=== PATIENT | female | born 1960 | race Caucasian/White ===

== ENCOUNTER 2017-03-21 12:18 | Outpatient (CLI) | payer OTHER ==
--- NOTE | 2017-03-21 17:00 | XRAY Report ---
LUMBAR SPINE THREE VIEWS: 03/21/2017 CLINICAL HISTORY: Back pain. COMPARISON: None. FINDINGS: The patient is status post posterior instrumented and anterior interbody L4-5 fusions. There is degenerative L3-4 disk space narrowing. Minimal dextroscoliosis apex at L3. No other significant findings. IMPRESSION: STATUS POST ANTERIOR AND POSTERIOR L4-5 FUSIONS WITH MODERATELY ADVANCED DEGENERATIVE DISK DISEASE AT L3-4. OTHERWISE, NEGATIVE. JOB #: [id number] EXT JOB #: [id number] [facility]
== END 2017-03-21 12:19 | disposition home or self-care (01) ==
LOC: DI 12:18
PROVIDERS: ATTEND Internal Medicine
DX: M51.36 Other intervertebral disc degeneration, lumbar region (principal); Z98.1 Arthrodesis status
CPT/HCPCS: 72100

== ENCOUNTER 2017-09-06 10:58 | Outpatient (CLI) | payer OTHER ==
--- NOTE | 2017-09-06 14:58 | XRAY Report ---
FOUR VIEW RIGHT WRIST: 09/06/2017 CLINICAL INDICATION: Pain at base of thumb. FINDINGS: AP, lateral, oblique, scaphoid views of the right wrist demonstrate no evidence of fracture or dislocation. The joint spaces are preserved. No radiopaque foreign body is seen in the soft tissues. IMPRESSION: NORMAL RIGHT WRIST. TD: 09/06/2017 14:57
== END 2017-09-06 10:59 | disposition home or self-care (01) ==
LOC: DI 10:58
PROVIDERS: ATTEND Internal Medicine
DX: M79.644 Pain in right finger(s) (principal); M25.541 Pain in joints of right hand

== ENCOUNTER 2017-09-24 09:44 | Outpatient (CLI) | payer OTHER ==
--- NOTE | 2017-09-25 17:18 | Mammography Report ---
DIGITAL SCREENING MAMMOGRAM: 09/24/2017 CLINICAL INDICATION: A 56-year-old with history of late childbearing for screening. COMPARISON: Films from [place], [place] dated 02/20/2013, 12/14/2011. TECHNIQUE: Routine CC and MLO projections were obtained of the breasts. FINDINGS: Scattered fibroglandular tissue is present within the breasts. There are no dominant masses, suspicious microcalcifications, or secondary signs of malignancy. In comparison to the previous studies, there are no significant changes. ASSESSMENT: NO MAMMOGRAPHIC EVIDENCE OF MALIGNANCY. NO SIGNIFICANT INTERVAL CHANGES. RECOMMENDATION: Screening mammography is recommended annually. BIRADS category 1 - negative. STANDARD QUALIFYING STATEMENTS: 1. This examination was reviewed with the aid of Computed-Aided Detection (CAD). 2. A negative or benign imaging report should not delay biopsy if clinically suspicious findings are present. Consider surgical consultation if warranted. More than 5% of cancers are not identified by imaging. 3. Dense breasts may obscure an underlying neoplasm. TD: 09/25/2017 17:16
== END 2017-09-24 09:45 | disposition home or self-care (01) ==
LOC: DI 09:44
PROVIDERS: ATTEND Internal Medicine
DX: Z12.31 Encounter for screening mammogram for malignant neoplasm of breast (principal)
CPT/HCPCS: 77067

== ENCOUNTER 2018-04-02 11:22 | Outpatient (CLI) | payer OTHER ==
--- NOTE | 2018-04-02 16:31 | XRAY Report ---
Reason: NIGHTSWEATS Procedure Date: 04/02/2018 Accession Number: [id number] / [id number] Procedure: XR - Chest 2 View X-Ray CPT Code: 55850 FULL RESULT: EXAM: CHEST RADIOGRAPHY EXAM DATE: 04/02/2018 11:57 AM. CLINICAL HISTORY: Night sweats. COMPARISON: None. TECHNIQUE: 2 views. FINDINGS: Lungs/Pleura: No focal opacities evident. No pleural effusion. No pneumothorax. Normal volumes. Mediastinum: Heart and mediastinal contours are unremarkable. Other: None. IMPRESSION: No acute cardiopulmonary abnormality and no evidence of prior granulomatous disease. [facility]
== END 2018-04-02 11:23 | disposition home or self-care (01) ==
LOC: DI 11:22
PROVIDERS: ATTEND Internal Medicine
DX: R61 Generalized hyperhidrosis (principal)
CPT/HCPCS: 71046

== ENCOUNTER 2018-08-21 12:47 | Outpatient (CLI) | payer OTHER ==
--- NOTE | 2018-08-21 14:22 | XRAY Report ---
Reason: L SMALL FINGER PAIN DEFORMITY Procedure Date: 08/21/2018 Accession Number: [id number] / [id number] Procedure: XR - Hand 3 View LT CPT Code: FULL RESULT: EXAM: LEFT HAND RADIOGRAPHY EXAM DATE: 08/21/2018 12:57 PM. CLINICAL HISTORY: Left small finger pain and deformity. COMPARISON: Right wrist 4 views 09/06/2017. TECHNIQUE: 3 views. FINDINGS: Bones: There is a questionable small donor fragment along the dorsal aspect of the fifth distal interphalangeal articulation, well corticated and possibly not acute. Joints: Normal. No subluxations. Soft Tissues: Normal. No soft tissue swelling. IMPRESSION: Question avulsion fracture at the distal fifth interphalangeal articulation dorsally. RADIA
== END 2018-08-21 12:48 | disposition home or self-care (01) ==
LOC: DI 12:47
PROVIDERS: ATTEND Internal Medicine
DX: M79.645 Pain in left finger(s) (principal); M20.099 Other deformity of finger(s), unspecified finger(s)

== ENCOUNTER 2018-10-24 08:58 | Outpatient (CLI) | payer OTHER ==
[2018-10-24 09:13] LABS: BASOPHILS # (AUTO) 0.1 10^3/uL (0.0-0.1); BASOPHILS % (AUTO) 2.2 %; EOSINOPHILS # (AUTO) 0.2 10^3/uL (0.0-0.7); EOSINOPHILS % (AUTO) 4.8 %; HGB - HEMOGLOBIN 12.6 g/dL (12.0-16.0); LYMPHOCYTES # (AUTO) 1.1 10^3/uL (1.5-3.5); LYMPHOCYTES % (AUTO) 27.1 %; MEAN CORPUSCULAR HEMOGLOBIN 31.6 pg (27.0-31.0); MEAN CORPUSCULAR HGB CONC 33.3 g/dL (32.0-36.0); MEAN CORPUSCULAR VOLUME 94.8 fL (81.0-99.0); MEAN PLATELET VOLUME 9.6 fL (7.9-10.8); MONOCYTES # (AUTO) 0.4 10^3/uL (0.0-1.0); MONOCYTES % (AUTO) 9.6 %; NEUTROPHILS # (AUTO) 2.3 10^3/uL (1.5-6.6); NEUTROPHILS % (AUTO) 56.3 %; PLT - PLATELET COUNT 179 10^3/uL (130-450); RED BLOOD COUNT 4.01 10^6/uL (4.20-5.40); RED CELL DISTRIBUTION WIDTH 13.9 % (12.0-15.0); WHITE BLOOD COUNT 4.2 x10^3/uL (4.8-10.8)
[2018-10-24 09:26] LABS: BILIRUBIN,URINE NEGATIVE (NEGATIVE); GLUCOSE, URINE (UA) NEGATIVE (NEGATIVE); KETONES,URINE (UA) NEGATIVE (NEGATIVE); LEUKOCYTE ESTERASE, URINE NEGATIVE (NEGATIVE); NITRITE,URINE NEGATIVE (NEGATIVE); OCCULT BLOOD,URINE NEGATIVE (NEGATIVE); PROTEIN,URINE NEGATIVE (NEGATIVE); UROBILINOGEN,URINE 0.2 (NORMAL) E.U./dL (NORMAL)
[2018-10-24 09:32] LABS: ALBUMIN 3.8 g/dL (3.2-5.5); ALBUMIN/GLOBULIN RATIO 1.5 (1.0-2.2); ALKALINE PHOSPHATASE 59 IU/L (42-121); ALT ALANINE AMINOTRANSFERASE 14 IU/L (10-60); AST ASPARTATE AMINOTRANSFERASE 18 IU/L (10-42); BILIRUBIN,TOTAL 0.6 mg/dL (0.2-1.0); BUN - BLOOD UREA NITROGEN 20 mg/dL (6-20); CALCIUM 8.7 mg/dL (8.5-10.3); CARBON DIOXIDE - CO2 28 mmol/L (21-32); CHLORIDE 98 mmol/L (101-111); CHOL/HDL RATIO 2.1 (<4.4); CHOLESTEROL 185 mg/dL; CK- CREATINE KINASE 59 IU/L (22-269); GFR - MDRD 57 (>89); GLUCOSE 93 mg/dL (70-100); HDL CHOLESTEROL 88 mg/dL; SODIUM 135 mmol/L (135-145); TOTAL PROTEIN 6.4 g/dL (6.7-8.2)
[2018-10-24 09:35] LABS: CLARITY,URINE CLEAR (CLEAR)
[2018-10-24 09:42] LABS: THYROID STIMULATING HORMONE 2.83 uIU/mL (0.34-5.60)
[2018-10-24 09:54] LABS: LDL CHOLESTEROL,DIRECT 87 mg/dL
[2018-10-25 12:47] LABS: HEPATITIS C ANTIBODY NON-REACTIVE (NON-REACTIVE)
== END 2018-10-24 08:59 | disposition home or self-care (01) ==
LOC: LAB 08:58
PROVIDERS: ATTEND Internal Medicine
DX: I10 Essential (primary) hypertension (principal); E78.5 Hyperlipidemia, unspecified; Z79.899 Other long term (current) drug therapy; K58.9 Irritable bowel syndrome, unspecified; R53.83 Other fatigue; F32.9 Major depressive disorder, single episode, unspecified; J45.909 Unspecified asthma, uncomplicated; Z11.59 Encounter for screening for other viral diseases
CPT/HCPCS: 36415; 80053; 80061; 81001; 81003; 82550; 82607; 83721; 84443; 85025; 86803; 87086

== ENCOUNTER 2018-11-26 15:37 | Outpatient (CLI) | payer OTHER ==
--- NOTE | 2018-11-27 10:47 | Mammography Report ---
Reason: SCREENING MAMMO Procedure Date: 11/26/2018 Accession Number: [id number] / [id number] Procedure: [facility] - Screening Mammo w/Silvestre CPT Code: FULL RESULT: EXAM: Screening Mammo w/Silvestre DATE: 11/26/2018 4:20 PM CLINICAL HISTORY: Routine screening TECHNIQUE: (B) - Bilateral CC and MLO views were obtained. COMPARISON: 09/24/2017, 02/20/2013, 12/14/2011. PARENCHYMAL PATTERN: (A) - The breasts demonstrate scattered fibroglandular densities bilaterally. FINDINGS: No significant interval change. There are no suspicious masses, calcifications, or areas of distortion. IMPRESSION: Negative examination. BI-RADS category 1. RECOMMENDATION: (ANNUAL) - Recommend routine annual screening mammography. BI-RADS CATEGORY: (1) - Negative. STANDARD QUALIFYING STATEMENTS: 1. This examination was not reviewed with the aid of Computer-Aided Detection (CAD). 2. A negative or benign imaging report should not preclude biopsy if clinically suspicious findings are present. 3. Dense breasts may obscure an underlying neoplasm. 4. This examination was reviewed with the aid of 3D breast imaging (tomosynthesis).
== END 2018-11-26 15:38 | disposition home or self-care (01) ==
LOC: DI 15:37
PROVIDERS: ATTEND Internal Medicine
DX: Z12.31 Encounter for screening mammogram for malignant neoplasm of breast (principal)
CPT/HCPCS: 77063; 77067

== ENCOUNTER 2018-11-29 19:51 | Emergency (ER) | payer OTHER ==
[2018-11-29 20:00] VITALS: BP 138/75
--- NOTE | 2018-11-29 20:33 | ED Physician Documentation ---
PD HPI UPPER EXT INJURY - Stated complaint Stated Complaint: LT FINGER LAC - Chief complaint Chief Complaint: Laceration - History obtained from History obtained from: Patient - History of Present Illness Location: Left, Finger (index) Type of injury: Laceration (cutting vegetables at home and sliced the tip of her finger. It does not want to stop bleeding, despite direct pressure (stops while pressure is held, then resumes if let go).) Where injury occurred: Home Timing - onset: Today Timing - details: Abrupt onset Improved by: Other (direct pressure) Associated symptoms: No: Weakness, Numbness Similar symptoms before: Has not had sx before Review of Systems Skin: reports: Laceration (s) Neurologic: denies: Focal weakness, Numbness, Near syncope PD PAST MEDICAL HISTORY - Past Medical History Past Medical History: Yes Cardiovascular: Hypertension Respiratory: Asthma Neuro: None Endocrine/Autoimmune: None GI: None : None HEENT: None Musculoskeletal: None Derm: None - Past Surgical History Past Surgical History: Yes 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, 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 - Allergies Allergies/Adverse Reactions: Allergies Allergy/AdvReac Type Severity Reaction Status Date / Time azithromycin [From Zithromax] Allergy Emesis Verified 11/29/18 20:00 clarithromycin [From Biaxin] Allergy Emesis Verified 11/29/18 20:00 - Social History Does the pt smoke?: No Smoking Status: Never smoker Does the pt drink ETOH?: Yes Does the pt have substance abuse?: No - Immunizations Immunizations are current?: Yes - POLST Patient has POLST: No PD ED PE NORMAL - Vitals Vital signs reviewed: Yes - General General: Alert and oriented X 3, No acute distress, Well developed/nourished - Derm Derm: Normal color, Warm and dry - Extremities Extremities: Other (left index finger tip with small avulsion of skin partial thickness, with some oozing of blood when pressure is taken off it. Does not involve the nailbed, and no FBs seen. ) - Neuro Neuro: No motor deficit, No sensory deficit Results - Vitals Vitals: Vital Signs - 24 hr 11/29/18 11/29/18 11/29/18 19:53 20:22 20:49 Temperature 37.0 C Heart Rate 68 Respiratory 16 17 17 Rate Blood Pressure 138/75 H O2 Saturation 98 Oxygen O2 Source Room air PD MEDICAL DECISION MAKING - ED course Complexity details: considered differential (main issue for patient is that there continues capillary oozing of bleeding. Here, I applied Monsels solution and Dermabond, and the bleeding stopped. Dressing by Tech. ), d/w patient Departure - Departure Disposition: 01 Home, Self Care Clinical Impression: Avulsion, finger tip Qualifiers: Encounter type: initial encounter Qualified Code(s): S61.209A - Unspecified open wound of unspecified finger without damage to nail, initial encounter Condition: Stable Record reviewed to determine appropriate education?: Yes Instructions: ED Avulsion Dermal Follow-Up: Benita Garcia MD [Primary Care Provider] - Comments: Leave the initial dressing on for well into tomorrow, and keep it dry for 1-2 da ys. At that point it should be not bleeding and be able to be treated with just normal care of soap and water and ointment and Band-Aid. Discharge Date/Time: 11/29/18 21:02
== END 2018-11-29 21:02 | disposition home or self-care (01) ==
LOC: ED 19:51
DX: S61.211A Laceration without foreign body of left index finger without damage to nail, initial encounter (principal); W26.0XXA Contact with knife, initial encounter; Y93.G1 Activity, food preparation and clean up; Y92.009 Unspecified place in unspecified non-institutional (private) residence as the place of occurrence of the external cause; I10 Essential (primary) hypertension
CPT/HCPCS: 12001; 99282; 99283

== ENCOUNTER 2019-06-30 10:42 | Emergency (ER) | payer OTHER ==
[2019-06-30 12:58] LABS: BASOPHILS # (AUTO) 0.1 10^3/uL (0.0-0.1); EOSINOPHILS # (AUTO) 0.2 10^3/uL (0.0-0.7); EOSINOPHILS % (AUTO) 2.8 %; HGB - HEMOGLOBIN 12.8 g/dL (12.0-16.0); LYMPHOCYTES # (AUTO) 1.3 10^3/uL (1.5-3.5); LYMPHOCYTES % (AUTO) 19.6 %; MEAN CORPUSCULAR HGB CONC 32.3 g/dL (32.0-36.0); MEAN PLATELET VOLUME 12.4 fL (7.9-10.8); MONOCYTES # (AUTO) 0.8 10^3/uL (0.0-1.0); MONOCYTES % (AUTO) 11.1 %; NEUTROPHILS # (AUTO) 4.4 10^3/uL (1.5-6.6); NEUTROPHILS % (AUTO) 65.2 %; PLT - PLATELET COUNT 189 10^3/uL (130-450); RED CELL DISTRIBUTION WIDTH 13.2 % (12.0-15.0); WHITE BLOOD COUNT 6.8 x10^3/uL (4.8-10.8)
--- NOTE | 2019-06-30 12:59 | ED Physician Documentation ---
History of Present Illness - Stated complaint Stated Complaint: WHIPPLE/GLF - Chief complaint Chief Complaint: General - History obtained from History obtained from: Patient - History of Present Illness Timing: How many weeks ago (1) - Additonal information Additional information: 58-year-old female was in [place]. She states that she got up in the morning to use the restroom, felt nauseated and lightheaded. When she stood up she believes that she passed out and struck her head on the floor. She had vomiting throughout the day that day. No diarrhea. She currently still has intermittent mild headaches and intermittently feels "woozy". Worse with standing and better with rest. Does not take any blood thinners. She did stop Wellbutrin about a month ago. She has had syncopal episodes in the past. No cause found. 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 - Allergies Allergies/Adverse Reactions: Allergies Allergy/AdvReac Type Severity Reaction Status Date / Time azithromycin [From Zithromax] Allergy Emesis Verified 06/30/19 10:55 clarithromycin [From Biaxin] Allergy Emesis Verified 06/30/19 10:55 - Social History Does the pt smoke?: No Smoking Status: Never smoker Does the pt drink ETOH?: Yes Does the pt have substance abuse?: No - Immunizations Immunizations are current?: Yes - POLST Patient has POLST: No PD ED PE NORMAL - Vitals Vital signs reviewed: Yes - General General: Alert and oriented X 3, No acute distress - HEENT HEENT: PERRL, Moist mucous membranes, Other (ecchymosis to the R periorbital area ) - Neck Neck: Supple, no meningeal sign - Cardiac Cardiac: RRR, Strong equal pulses - Respiratory Respiratory: No respiratory distress, Clear bilaterally - Abdomen Abdomen: Soft, Non tender, Non distended - Derm Derm: Warm and dry, No rash - Extremities Extremities: No edema, No calf tenderness / cord - Neuro Neuro: Alert and oriented X 3 - Psych Psych: Normal mood, Normal affect Results - Vitals Vitals: Vital Signs - 24 hr 06/30/19 06/30/19 10:55 13:30 Temperature 36.8 C Heart Rate 75 62 Respiratory 18 13 Rate Blood Pressure 111/87 H 122/84 H O2 Saturation 97 100 Oxygen O2 Source Room air - EKG (time done) 1232 Rate: Rate (enter#) (61) Rhythm: NSR [place]: Normal Intervals: Normal NE QRS: Normal Ischemia: Normal ST segments - Labs Labs: Laboratory Tests 06/30/19 06/30/19 06/30/19 12:25 12:53 12:53 WBC 6.8 RBC 4.00 L Hgb 12.8 Hct 39.6 MCV 99.0 MCH 32.0 H MCHC 32.3 RDW 13.2 Plt Count 189 MPV 12.4 H Neut # (Auto) 4.4 Lymph # (Auto) 1.3 L [place] # (Auto) 0.8 Eos # (Auto) 0.2 Baso # (Auto) 0.1 Absolute Nucleated RBC 0.00 Nucleated RBC % 0.0 Sodium 137 Potassium 4.0 Chloride 101 Carbon Dioxide 27 Anion Gap 9.0 BUN 18 Creatinine 1.0 Estimated GFR (MDRD) 57 L Glucose 99 Calcium 8.8 Total Bilirubin 0.6 AST 22 ALT 17 Alkaline Phosphatase 58 Total Protein 6.7 Albumin 4.2 Globulin 2.5 Albumin/Globulin Ratio 1.7 Lipase 39 Urine Color YELLOW Urine Clarity CLEAR Urine pH 5.5 Ur Specific [place] 1.015 Urine Protein NEGATIVE Urine Glucose (UA) NEGATIVE Urine Ketones NEGATIVE Urine Occult Blood NEGATIVE Urine Nitrite NEGATIVE Urine Bilirubin NEGATIVE Urine Urobilinogen 0.2 (NORMAL) Ur Leukocyte Esterase NEGATIVE Ur Microscopic Review NOT INDICATED Urine Culture Comments NOT INDICATED - Rads (name of study) head CT Radiology: Prelim report reviewed, EMP read contemporaneously, See rad report (normal) PD MEDICAL DECISION MAKING - ED course Complexity details: reviewed results, re-evaluated patient, considered differential, d/w patient ED course: Patient is one-week status post a syncopal event. No significant lab abnormalities, no head CT abnormalities. No EKG abnormalities. We will have her follow-up with her doctor for further care. She is well-appearing, nontoxic. Afebrile. Patient counseled regarding signs and symptoms for which I believe and urgent re-evaluation would be necessary. Patient with good understanding of and agreement to plan and is comfortable going home at this time This document was made in part using voice recognition software. While efforts are made to proofread this document, sound alike and grammatical errors may occur. Departure - Departure Disposition: 01 Home, Self Care Clinical Impression: Head injury Qualifiers: Encounter type: initial encounter Qualified Code(s): S09.90XA - Unspecified injury of head, initial encounter Syncope Qualifiers: Syncope type: unspecified Qualified Code(s): R55 - Syncope and collapse Periorbital contusion of right eye Qualifiers: Encounter type: initial encounter Qualified Code(s): S05.11XA - Contusion of eyeball and orbital tissues, right eye, initial encounter Condition: Good Instructions: ED Head Injury Closed, ED Fainting Unkn Cause Follow-Up: Benita Garcia MD [Primary Care Provider] - Within 1 week Comments: Your test do not indicate any acute abnormalities today. Please follow-up with your doctor for further care. Return if you worsen. Discharge Date/Time: 06/30/19 14:08
[2019-06-30 13:16] LABS: ALBUMIN 4.2 g/dL (3.2-5.5); ALBUMIN/GLOBULIN RATIO 1.7 (1.0-2.2); BILIRUBIN,TOTAL 0.6 mg/dL (0.2-1.0); CALCIUM 8.8 mg/dL (8.5-10.3); TOTAL PROTEIN 6.7 g/dL (6.7-8.2)
[2019-06-30 13:23] LABS: BILIRUBIN,URINE NEGATIVE (NEGATIVE); GLUCOSE, URINE (UA) NEGATIVE (NEGATIVE); KETONES,URINE (UA) NEGATIVE (NEGATIVE); LEUKOCYTE ESTERASE, URINE NEGATIVE (NEGATIVE); NITRITE,URINE NEGATIVE (NEGATIVE); OCCULT BLOOD,URINE NEGATIVE (NEGATIVE); PH,URINE 5.5 PH (5.0-7.5); PROTEIN,URINE NEGATIVE (NEGATIVE); UROBILINOGEN,URINE 0.2 (NORMAL) E.U./dL (NORMAL)
[2019-06-30 13:26] LABS: CLARITY,URINE CLEAR (CLEAR)
--- NOTE | 2019-06-30 13:26 | CT Report ---
Reason: head injury, mod-severe Procedure Date: 06/30/2019 Accession Number: [id number] / [id number] Procedure: CT - HEAD WO CPT Code: Final Report FULL RESULT: EXAM: CT HEAD EXAM DATE: 06/30/2019 01:01 PM. CLINICAL HISTORY: Head injury, mod-severe. Right frontal bruising. COMPARISON: None. TECHNIQUE: Multiaxial CT images were obtained from the foramen magnum to the vertex. Reformats: Sagittal and coronal. IV contrast: None. In accordance with CT protocol optimization, one or more of the following dose reduction techniques were utilized for this exam: automated exposure control, adjustment of mA and/or KV based on patient size, or use of iterative reconstructive technique. FINDINGS: Parenchyma: No intraparenchymal hemorrhage. No evidence of mass, midline shift, or CT findings of infarction. Madrigal-white differentiation is distinct. Extraaxial Spaces: Normal for age. No subdural or epidural collections identified. Ventricles: Normal in size and position. Sinuses and Orbits: Imaged paranasal sinuses, orbits, and mastoids show no significant abnormality. Bones: There is a small anterior right scalp hematoma. There is no fracture. Other: None. IMPRESSION: Negative for an acute or focal intracranial abnormality by noncontrast CT [facility]
[2019-06-30 13:34] VITALS: BP 122/84
== END 2019-06-30 14:08 | disposition home or self-care (01) ==
LOC: ED 10:42
DX: R55 Syncope and collapse (principal); S09.90XA Unspecified injury of head, initial encounter; S05.11XA Contusion of eyeball and orbital tissues, right eye, initial encounter; W18.30XA Fall on same level, unspecified, initial encounter; Y92.59 Other trade areas as the place of occurrence of the external cause; I10 Essential (primary) hypertension
CPT/HCPCS: 36415; 70450; 80053; 81001; 81003; 83690; 85025; 87086; 93005; 99284

== ENCOUNTER 2019-08-13 14:39 | Outpatient (CLI) | payer OTHER | END 2019-08-13 14:40 | disposition home or self-care (01) | LOC: NS 14:39 | PROVIDERS: ATTEND Internal Medicine | DX: Z71.3 Dietary counseling and surveillance (principal); K58.9 Irritable bowel syndrome, unspecified | CPT/HCPCS: 97802 ==

== ENCOUNTER 2019-09-09 15:06 | Outpatient (CLI) | payer OTHER | END 2019-09-09 15:07 | disposition home or self-care (01) | LOC: NS 15:06 | PROVIDERS: ATTEND Internal Medicine | DX: Z71.3 Dietary counseling and surveillance (principal); K58.9 Irritable bowel syndrome, unspecified | CPT/HCPCS: 97803 ==

== ENCOUNTER 2019-10-28 09:57 | Outpatient (CLI) | payer OTHER ==
[2019-10-28 10:22] LABS: BASOPHILS # (AUTO) 0.1 10^3/uL (0.0-0.1); BASOPHILS % (AUTO) 1.2 %; EOSINOPHILS # (AUTO) 0.1 10^3/uL (0.0-0.7); EOSINOPHILS % (AUTO) 3.2 %; HGB - HEMOGLOBIN 13.5 g/dL (12.0-16.0); LYMPHOCYTES # (AUTO) 1.1 10^3/uL (1.5-3.5); LYMPHOCYTES % (AUTO) 27.1 %; MEAN CORPUSCULAR HEMOGLOBIN 31.7 pg (27.0-31.0); MEAN CORPUSCULAR HGB CONC 33.2 g/dL (32.0-36.0); MEAN CORPUSCULAR VOLUME 95.5 fL (81.0-99.0); MEAN PLATELET VOLUME 11.9 fL (7.9-10.8); MONOCYTES # (AUTO) 0.5 10^3/uL (0.0-1.0); MONOCYTES % (AUTO) 11.5 %; NEUTROPHILS # (AUTO) 2.3 10^3/uL (1.5-6.6); NEUTROPHILS % (AUTO) 56.8 %; PLT - PLATELET COUNT 190 10^3/uL (130-450); RED BLOOD COUNT 4.26 10^6/uL (4.20-5.40); RED CELL DISTRIBUTION WIDTH 13.3 % (12.0-15.0); WHITE BLOOD COUNT 4.1 x10^3/uL (4.8-10.8)
[2019-10-28 10:37] LABS: ALBUMIN 4.4 g/dL (3.2-5.5); ALBUMIN/GLOBULIN RATIO 1.7 (1.0-2.2); ALKALINE PHOSPHATASE 59 IU/L (42-121); ALT ALANINE AMINOTRANSFERASE 15 IU/L (10-60); AST ASPARTATE AMINOTRANSFERASE 20 IU/L (10-42); BILIRUBIN,TOTAL 0.6 mg/dL (0.2-1.0); BUN - BLOOD UREA NITROGEN 25 mg/dL (6-20); CALCIUM 8.8 mg/dL (8.5-10.3); CARBON DIOXIDE - CO2 26 mmol/L (21-32); CHLORIDE 102 mmol/L (101-111); CHOL/HDL RATIO 2.6 (<4.4); CHOLESTEROL 205 mg/dL; CK- CREATINE KINASE 63 IU/L (22-269); CREATININE 1.1 mg/dL (0.4-1.0); GLUCOSE 106 mg/dL (70-100); HDL CHOLESTEROL 78 mg/dL; LDL CHOLESTEROL,CALCULATED 115 mg/dL; LDL/HDL RATIO 1.5 (<4.4); SODIUM 136 mmol/L (135-145); VLDL CHOLESTEROL 12 mg/dL
== END 2019-10-28 09:58 | disposition home or self-care (01) ==
LOC: LAB 09:57
PROVIDERS: ATTEND Internal Medicine
DX: I10 Essential (primary) hypertension (principal); Z79.899 Other long term (current) drug therapy; Z13.6 Encounter for screening for cardiovascular disorders; J30.2 Other seasonal allergic rhinitis; K58.9 Irritable bowel syndrome, unspecified; E78.5 Hyperlipidemia, unspecified
CPT/HCPCS: 36415; 80053; 80061; 82550; 83721; 84443; 85025